=== PATIENT | male | born 1980 | race Hispanic/Latino ===

== ENCOUNTER 2017-11-22 17:26 | Emergency (ER) | payer SELFPAY ==
[~2017-11-22] VITALS: Ht 167.6 cm; Wt 82.7 kg
[2017-11-22] MEDS ORDERED: MUPIROCIN21 TOP (17:42)
[2017-11-22] MEDS ORDERED: CEPHALEXIN500 M1 PO (17:42)
[2017-11-22] MEDS ORDERED: BACTRIM DS1 TAB PO (17:42)
[2017-11-22 17:50] VITALS: BP 137/89
== END 2017-11-22 17:50 | disposition home or self-care (01) | DRG 603 ==
LOC: ED 17:26
DX: L03.116 Cellulitis of left lower limb (principal)

== ENCOUNTER 2017-12-08 00:29 | Emergency (ER) | payer SELFPAY ==
[~2017-12-08] VITALS: Ht 167.6 cm; Wt 89.6 kg
[~2017-12-08 00:29] MED LIST: BACTRIM DS1 TAB PO; CEPHALEXIN500 M1 PO; MUPIROCIN21 TOP
[2017-12-08] MEDS ORDERED: MEDDOSEPAK PO (00:54)
[2017-12-08] MEDS ORDERED: PEPCID20 MG PO (00:54)
[2017-12-08] MEDS ORDERED: BENADRYL 50MG C50 MG PO (00:54)
[2017-12-08 01:02] VITALS: BP 145/101
== END 2017-12-08 01:06 | disposition home or self-care (01) | DRG 916 ==
LOC: ED 00:29
DX: T78.40XA Allergy, unspecified, initial encounter (principal)